=== PATIENT | female | born 1945 | race Caucasian/White ===

== ENCOUNTER 2021-06-21 14:54 | Emergency (ER) | payer MEDICARE, OTHER ==
[~2021-06-21 14:54] MED LIST: AMBIEN5 MG PO; ASPIRIN CHEWABL81 MG PO; AZELASTINE205.5 MCG/; BIOTIN10000 MCG PO; BUTRANS1 EACH TD; COREG 3.125M3.125 MG PO; ENTRESTO 24 MG1 EACH PO; LASIX40 MG PO; LEXAPRO20 MG PO; LIPITOR20 MG PO; MEDROL 4MG DOSEP4 MG PO; NEURONTIN300 MG PO; NORCO 5/3251 EACH PO; PROTONIX 40MG T40 MG PO; SYNTHROID125 MCG PO; UROCIT-K10 MEQ PO; XANAX0.5 MG PO
[2021-06-21 16:22] LABS: BASOPHIL 0.6 % (0-2); HCT 30.8 % (37.0-47.0); HGB 9.5 g/dl (12.5-16.0); MCHC 30.8 g/dL (32.0-36.0); MCV 74.6 fL (78.0-100.0); MONOCYTE 12.1 % (0-12); MPV 11.1 fL (6.0-9.5); NEUTROPHIL 68.9 % (41-80); NRBC 0; PLT 230 K/uL (150-400); RBC 4.13 M/uL (4.20-5.40); RDW 16.1 % (11.5-14.0); WBC 5.1 K/uL (4.0-10.5)
[2021-06-21 16:43] LABS: LACTIC ACID 0.7 mmol/L (0.4-1.9)
[2021-06-21 16:47] LABS: ALBUMIN 3.5 g/dL (3.4-5.0); BILIRUBIN - TOTAL 0.3 mg/dL (0.2-1.0); BUN/CREAT RATIO (CALC) 15.2 RATIO; CREATININE 1.45 mg/dL (0.51-0.95); GLOBULIN (CALCULATION) 2.6 g/dL; POTASSIUM 3.9 mmol/L (3.5-5.1); TOTAL PROTEIN 6.1 g/dL (6.4-8.2)
[2021-06-21 19:18] LABS: BILIRUBIN NEGATIVE (NEGATIVE); BLOOD NEGATIVE Ery/uL (NEGATIVE); CLARITY CLEAR (CLEAR); COLOR YELLOW (YELLOW); GLUCOSE (U) NORMAL (NORMAL); LEUKOCYTES NEGATIVE Leu/uL (NEGATIVE); NITRITE NEGATIVE (NEGATIVE); PROTEIN NEGATIVE (NEGATIVE); SPECIFIC GRAVITY <=1.005 (1.001-1.030); UROBILINOGEN 0.2 mg/dL (0.2-1.0)
== END 2021-06-21 20:20 | disposition home or self-care (01) ==
LOC: FER 14:54
PROVIDERS: Physician Assistant
DX: D64.9 Anemia, unspecified (principal); I50.9 Heart failure, unspecified; I25.2 Old myocardial infarction; Z88.2 Allergy status to sulfonamides; Z88.1 Allergy status to other antibiotic agents; Z88.8 Allergy status to other drugs, medicaments and biological substances
CPT/HCPCS: 36415; 71045; 80053; 81003; 83605; 83880; 84484; 85025; 86850; 86900; 86901; 93005; J7030